=== PATIENT | male | born 1940 | race Caucasian/White ===

== ENCOUNTER 2017-09-24 12:53 | Emergency (ER) | payer MEDICARE ==
[2017-09-24 13:38] VITALS: BP 151/88
--- NOTE | 2017-09-24 14:26 | UC ---
Skin Complaint HPI - HPI Summary HPI Summary: 77M presents with left ankle swelling for 3 days. He has some redness up his leg. He has an old injury on left leg with a large scar there. The patient claims he has gout as has history of gout and feels the same. states has been eating a lot of eggs. The left ankle is red and warm. no injury. no fever. is not diabetic. no history of CAD or renal disease. tried some excredin which helped for pain. redness has not spread. <Suze Muir - Last Filed: 09/24/17 17:04> <Lea Flores - Last Filed: 09/24/17 18:52> - History of Current Complaint Chief Complaint: [facility] Time Seen by Provider: 09/24/17 14:13 Stated Complaint: LF FOOT/LEG COMPLAINT - Allergy/Home Medications Allergies/Adverse Reactions: Allergies Allergy/AdvReac Type Severity Reaction Status Date / Time No Known Allergies Allergy Verified 09/24/17 13:38 Review of Systems Constitutional: Negative Skin: Rash Respiratory: Negative Cardiovascular: Negative Musculoskeletal: Edema - left ankle All Other Systems Reviewed And Are Negative: Yes <Suze Muir - Last Filed: 09/24/17 17:04> PMH/Surg Hx/FS Hx/Imm Hx Endocrine History: Other Other Endocrine History: no DM GI/ History: Other Other GI/ History: no renal disease - Surgical History Surgical History: Yes Surgery Procedure, Year, and Place: appy. cataract removal - Family History Known Family History: Negative: Diabetes - Social History Alcohol Use: None Substance Use Type: None Smoking Status (MU): Never Smoked Tobacco - Immunization History Most Recent Influenza Vaccination: no <Suze Muir - Last Filed: 09/24/17 17:04> Physical Exam Triage Information Reviewed: Yes Appearance: Well-Appearing Vital Signs: Initial Vital Signs Temp 97.9 F 09/24/17 13:34 Pulse 81 09/24/17 13:34 Resp 16 09/24/17 13:34 BP 151/88 09/24/17 13:34 Pulse Ox 97 09/24/17 13:34 Vital Signs Reviewed: Yes Eye Exam: Normal ENT Exam: Normal Respiratory: Positive: Lungs clear, Normal breath sounds Cardiovascular: Positive: RRR Musculoskeletal: Positive: Strength Intact - left ankle, ROM Intact - left ankle , Edema @ - lateral aspect of ankle, erythema with warmth Neurological Exam: Normal Psychological Exam: Normal Skin: Positive: Other - streaking erythema around an old scar 5cm by 9cm <Suze Muir - Last Filed: 09/24/17 17:04> Vital Signs: Initial Vital Signs Temp 97.9 F 09/24/17 13:34 Pulse 81 09/24/17 13:34 Resp 16 09/24/17 13:34 BP 151/88 09/24/17 13:34 Pulse Ox 97 09/24/17 13:34 <Lea Flores - Last Filed: 09/24/17 18:52> Course/Dx - Course Course Of Treatment: 77M presents with left ankle swelling for 3 days. He has some redness up his leg. He has an old injury on left leg with a large scar there. The patient claims he has gout as has history of gout and feels the same. states has been eating a lot of eggs. The left ankle is red and warm. no injury. no fever. is not diabetic. no history of CAD or renal disease. tried some excredin which helped for pain. redness has not spread. on exam ankle is red and hot. still has full ROM. also has some streaking around previous scar on ankle. will treat as cellulitis do to warmth of this area. will add indomethcin for pain as will treat gout also but symptoms more likely cellulitis. do not suspect septic arthritis at this time. patient advised to follow up about blood pressure with primary within 5 days. - Differential Diagnoses - Skin Complaint Differential Diagnoses: Cellulitis, Other - gout, septic arthritis - Diagnoses Provider Diagnoses: left foot swelling <Suze Muir - Last Filed: 09/24/17 17:04> Discharge <Suze Muir - Last Filed: 09/24/17 17:04> <Lea Flores - Last Filed: 09/24/17 18:52> - Discharge Plan Condition: Good Disposition: HOME Prescriptions: Cephalexin CAP* [Keflex CAP*] 500 mg PO TID #30 cap Indomethacin CAP* [Indocin CAP*] 50 mg PO TID PRN #20 cap PRN Reason: Pain Patient Education Materials: Gout (ED), Cellulitis (ED) Referrals: LOPEZ Stuart [Primary Care Provider] - Additional Instructions: Symptoms could be caused by gout or cellulitis. will treat for both Take indomethacin three times a day until symptoms improve Take Keflex three times a day for 10 days Elevate extremity Follow up with primary about blood pressure and cellulitis within 5 days Return to ED if develop fever, area of redness spreads, or any new or worsening symptoms Attestation Statement User Type: Provider - I was available for consult. This patient was seen by the ROGELIO. The patient was not presented to, seen by, or examined by me. -David <Lea Flores - Last Filed: 09/24/17 18:52>
== END 2017-09-24 14:36 | disposition home or self-care (01) ==
LOC: UCCORT 12:53
DX: M79.89 Other specified soft tissue disorders (principal)
CPT/HCPCS: 99212; G0463